=== PATIENT | male | born 2005 | race African-American/Black ===

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

== ENCOUNTER 2023-06-17 15:04 | Emergency (ER) | payer MEDICAID, SELFPAY ==
--- NOTE | ~2023-06-17 | XR_ITS ---
EXAMINATION: XR CHEST CLINICAL INFORMATION: Chest pain COMPARISON: Chest radiograph from 12/14/2020 TECHNIQUE: 2 views of the chest were obtained. FINDINGS: No focal consolidation. No pneumothorax. Trachea is midline. Cardiac mediastinal silhouette is not enlarged. No large pleural effusion. Osseous structures are intact. Soft tissues are unremarkable. XR/XR chest 2V IMPRESSION: No acute cardiopulmonary process.
--- NOTE | 2023-06-17 15:07 | ECG_ITS ---
Test Reason : CHEST PAIN Blood Pressure : / mmHG Vent. Rate : 095 BPM Atrial Rate : 095 BPM P-R Int : 140 ms QRS Dur : 092 ms QT Int : 316 ms P-R-T Axes : 082 090 052 degrees QTc Int : 397 ms Normal sinus rhythm Right atrial enlargement Rightward axis Pulmonary disease pattern Abnormal ECG When compared with ECG of 14-DEC-2020 11:46, No significant change was found Referred By: Zina Rey Electronically Signed By:Juan David Medrano
[2023-06-17 15:27] VITALS: BP 125/90; PULSE 106; RESP 18; TEMP 37.8; O2SAT 100; BMI 22.0
--- NOTE | 2023-06-17 15:29 | ED_ITS ---
HPI - General Adult General Chief complaint: Nausea/Vomiting/Diarrhea Stated complaint: chest pain,vomiting coughing Time Seen by Provider: 06/17/23 15:53 Source: patient Mode of arrival: ambulatory Limitations: no limitations History of Present Illness HPI narrative: Patient is a 18 year old assigned male at with no reported medical history presenting to the emergency department today with nausea, vomiting, and diarrhea. Patient states that over the last week he has felt generally unwell with nausea, vomiting, and diarrhea. Patient denies any dizziness, lightheadedness, abdominal pain, fever, chills, blurry vision, double vision, loss of vision, chest pain, difficulty breathing, shortness of breath, back pain, night sweats, pain with urination, increased urinary frequency, increased urinary urgency, blood in his urine or stool, syncope or a near syncopal episode, recent trauma or falls, bowel incontinence, bladder incontinence, bowel retention, bladder retention, or any other complaints at this time. Onset (ago): week(s) (1) Severity: mild Relieving factors: none Exacerbating factors: none Associated symptoms: nausea/vomiting Treatments prior to arrival: none Related Data Previous Rx's Medication Instructions Recorded ondansetron 4 mg disintegrating 4 mg PO Q8H 3 days #9 tabs 06/17/23 tablet Allergies Allergy/AdvReac Type Severity Reaction Status Date / Time No Known Allergies Allergy Unverified 12/05/19 19:10 [No Known Allergies*] Review of Systems 2 Constitutional: Constitutional: Reports no additional constitutional complaints, Denies chills, Denies fever(s) and Denies night sweats Eyes: Eyes: Reports no additional eye complaints, Denies blurry vision, Denies change in vision, Denies diplopia, Denies eye discharge, Denies loss of vision and Denies eye pain ENT: Denies dizziness Cardiovascular: Cardiovascular: Reports no additional cardiovascular complaints, Denies chest pain, Denies lightheadedness, Denies Loss of Consciousness and Denies dyspnea Respiratory: Respiratory: Reports no additional respiratory complaints and Denies dyspnea Gastrointestinal: Gastrointestinal: Reports no additional gastrointestinal complaints, Denies abdominal pain, Denies melena, Denies hematochezia, Reports change in bowel habits, Reports change in stool character, Reports diarrhea, Reports nausea and Reports vomiting Genitourinary: Genitourinary: Reports no additional male genitourinary complaints, Denies hematuria, Denies oliguria, Denies difficulty urinating, Denies dysuria, Denies urinary frequency, Denies urinary hesitancy, Denies urinary incontinence and Denies urinary urgency Musculoskeletal: Musculoskeletal: Reports no additional musculoskeletal complaints, Denies numbness and Denies tingling Neurologic: Denies dizziness, Denies loss of vision, Denies numbness and Denies tingling Psychiatric: Psychiatric: Reports no additional psychiatric complaints Endocrine: Endocrine: Reports no additional endocrine complaints Hematologic/Lymphatic: Hematologic/Lymphatic: Reports no additional hematologic/lymphatic complaints Allergic/Immunologic: Allergic/Immunologic: Reports no additional allergic/immunologic complaints [facility] Past Medical History Attestation statement: The following information was validated with the patient. Source: old records reviewed and nursing notes reviewed Social History Social History Alcohol intake: never Smoked in Last 30 Days: No Use of substances other than those prescribed or required for medical reasons: No Advance Directives: No Advance Directives Information Provided: No Physical Exam ED Vital Signs: Vital Signs - 24 hr 06/17/23 15:27 06/17/23 16:05 Temperature 100.1 F 98.9 F Pulse Rate 106 H 88 Respiratory Rate 18 16 Blood Pressure 125/90 H 135/87 Pulse Oximetry 100 100 Oxygen Delivery Method Room Air Room Air BMI result Body Mass Index 22.0 Const General: cooperative, no acute distress, alert and awake Nutritional Appearance: well nourished Orientation/consciousness: patient oriented x3 Limitations: no limitations HENMT Head: Yes normal to inspection and Yes atraumatic Ears: hearing grossly normal bilaterally and external ears normal General nose exam: Normal external nose present, no nasal discharge noted and no epistaxis Face and sinus: Yes normal facial exam, No abrasion and No laceration Mouth: Normal oral and palatal mucosa present, no drooling and no muffled voice Eyes General: appearance normal, both eyes and all related structures Periorbital: periorbital findings normal Eyelids: Yes eyelids normal Conjunctivae: conjunctivae normal Pupils: Equal, round and reactive pupils present EOM: EOMs intact bilaterally Neck Neck: Yes normal visual inspection, Yes full ROM and Yes no lymphadenopathy Chest Chest palpation & inspection: normal inspection of the chest Resp Effort & Inspection: normal respiratory effort and able to speak in complete sentences GI Inspection: Yes normal to inspection Neuro General: patient oriented x3 and moves all extremities Cranial nerves: Yes Equal, round and reactive pupils present Cognition (Neuro): normal cognition Motor exam (neuro): 5/5 motor strength present throughout Sensory Exam: Normal double simultaneous stimulation for sensation Coordination: [id number] test normal Extrem General: Yes normal to inspection, Yes full ROM and Yes capillary refill normal Psych Appearance: grossly normal Mental Status: mental status grossly normal Affect: normal affect Attitude: cooperative Thought process: Normal thought process present Thought content: Normal thought content present Insight: Good insight present (Psych) Course Course Course Narrative: This is an RME: Additional HPI, ROS, PE not included below will be deferred to primary provider. 18 yo m presents w/ 6 syncopal episodes in the past day states im out, i loose conciousness for 1 hour and then i come back . Reports a/c fevers, coughing, nausea, cp, sob Medications Administered Generic Name Dose Route Start Last Admin Trade Name Freq PRN Reason Stop Dose Admin Sodium Chloride 1,000 mls @ 999 mls/hr 06/17/23 16:15 06/17/23 16:41 Ns IV 06/17/23 17:15 999 mls/hr .[id number] MICHAEL Administration Discontinued Medications Generic Name Dose Route Start Last Admin Trade Name Freq PRN Reason Stop Dose Admin Ondansetron HCl 4 mg 06/17/23 16:06 06/17/23 16:41 Ondansetron Hcl 4 Mg/2 Ml Vial IVPUSH 06/17/23 16:07 4 mg ONCE ONE Administration Medical Decision Making Medical Decision Making [facility] Narrative: Patient is a 18 year old assigned male at with no reported medical history presenting to the emergency department today with nausea, vomiting, and diarrhea. Patient's physical exam was unremarkable. Patient's blood work was unremarkable. Patient's EKG was unremarkable. Patient's chest x-ray showed no acute process. Patient's COVID-19 and RSV tests were negative. Patient's influenza test was positive. I explained my physical exam findings as well as all test results to the patient. I answered all questions asked by the patient. I stressed the importance of the patient taking his medication as prescribed. I stressed the importance of the patient following up with his primary care provider. I stressed the importance of the patient returning to the emergency department immediately if his symptoms were to worsen or if he were to develop any dizziness, shortness of breath, difficulty breathing, chest pain, blurry vision, loss of vision, nausea, vomiting, abdominal pain, fever, chills, back pain, or any other complaints. Patient verbalized agreement and understanding with this treatment plan and discharge. Differential Diagnosis Differential Diagnoses: The differential diagnosis associated with the presentation includes Nausea Vomiting Diarrhea Viral illness COVID-19 Influenza Admission/Observation Consideration of admission/observation: Escalation of care including admission/observation considered Patient would have been admitted to the hospital had his work up had any findings where hospital admission was appropriate and his clinical presentation warranted hospital admission. Lab Data [facility] Lab Attestation statement: I reviewed the patient's lab results. My interpretation of these results are in the [facility] Rationale portion of this note. 06/17/23 15:44 06/17/23 15:44 Labs: Lab Results 06/17/23 06/17/23 Range/Units 15:25 15:44 WBC 6.4 (4.8-10.8) X10*3/uL RBC 5.42 (4.60-5.80) X10*6/uL Hgb 17.2 (14.0-18.0) g/dl Hct 46.8 (42.0-52.0) % MCV 86.3 (80.0-98.0) fL MCH 31.7 (27.0-33.0) pg MCHC 36.8 H (31.0-36.0) g/dl RDW 11.7 (11.0-16.0) % Plt Count 185 (160-400) X10*3/uL MPV 10.3 (9.4-12.4) fL Immature Gran % (Auto) 0.2 (0.0-0.4) % Neut % (Auto) 67.8 (45-73) % Lymph % (Auto) 19.8 L (20-40) % Braxton % (Auto) 12.0 H (2-11) % Eos % (Auto) 0.0 (0-4) % Baso % (Auto) 0.2 (0-2) % Lymph # (Auto) 1.3 (1.2-4.9) X10*3/uL Braxton # (Auto) 0.8 (0.1-1.2) X10*3/uL Eos # (Auto) 0.0 (0.0-0.4) X10*3/uL Baso # (Auto) 0.0 (0.0-0.2) X10*3/uL Abs Immat Gran (auto) 0.01 (0.00-0.03) X10*3/uL Absolute Neuts (auto) 4.4 (2.0-8.3) x10*3/uL Absolute Nucleated RBC 0.000 (0.0-0.012) X10*3/uL Nucleated RBC % (auto) 0.0 (0.0-0.2) /100WBC PT 15.1 H (11.1-13.3) SEC INR 1.2 H (0.9-1.1) Sodium 130 L (135-145) mmol/L Potassium 3.8 (3.3-5.1) mmol/L Chloride 95 L (96-108) mmol/L Carbon Dioxide 21 L (22-29) mmol/L Anion Gap 18 (12-20) BUN 14 (9-16) mg/dL Creatinine 1.08 (0.5-1.4) mg/dL Estim Creat Clear Calc 120.2 Estimated GFR > 60 Random Glucose 91 (60-115) mg/dL Calcium 10.0 (8.4-10.2) mg/dL Magnesium 2.0 (1.6-2.6) mg/dL Total Bilirubin 1.1 H (0.0-1.0) mg/dL AST 20 (5-37) U/L ALT 10 (0-40) U/L Alkaline Phosphatase 59 (39-117) U/L Troponin I High Sens 5.4 (<3.5-35.0) ng/L Total Protein 7.6 (6.5-8.0) g/dL Albumin 4.5 (3.5-5.0) g/dL Influenza Type A (PCR) POSITIVE A (Negative) Influenza Type B (PCR) NEGATIVE (Negative) RSV RNA Qual (PCR) NEGATIVE (Negative) SARS-CoV-2 RNA (RT-PCR) NEGATIVE (Negative) Independent Interpretation I performed an independent interpretation of an: EKG and Plain X-Ray Interpretation: My interpretation is in agreement with the radiologist's impression of this imaging study. - EXAMINATION: XR CHEST CLINICAL INFORMATION: Chest pain COMPARISON: Chest radiograph from 12/14/2020 TECHNIQUE: 2 views of the chest were obtained. FINDINGS: No focal consolidation. No pneumothorax. Trachea is midline. Cardiac mediastinal silhouette is not enlarged. No large pleural effusion. Osseous structures are intact. Soft tissues are unremarkable. XR/XR chest 2V IMPRESSION: No acute cardiopulmonary process. Dictated By: Jackson Millan MD Signed By: Electronically signed by Jackson Millan MD 06/17/23 1648 - Vent. Rate: 095 BPM Atrial Rate: 095 BPM P-R Int: 140 ms QRS Dur: 092 ms QT Int: 316 ms P-R-T Axes: 082 090 052 degrees QTc Int: 397 ms Normal sinus rhythm Right atrial enlargement Rightward axis Pulmonary disease pattern Abnormal ECG When compared with ECG of 14-DEC-2020 11:46, No significant change was found DD/ [id number] Radiology Impression Discussion of test interpretation with radiology: I have reviewed the radiologist's reading. Discharge Plan Discharge Clinical Impression: Influenza Patient Disposition: Home, Self-Care Instructions: Influenza (DC) Additional Instructions: Follow up with your primary care provider. Return to the emergency department immediately if your symptoms worsen or if you develop any dizziness, shortness of breath, difficulty breathing, chest pain, blurry vision, loss of vision, nausea, vomiting, abdominal pain, fever, chills, back pain, or any other complaints. Prescriptions: New ondansetron 4 mg tablet,disintegrating 4 mg PO Q8H 3 Days Qty: 9 0RF Referrals: [facility] [Provider Group] (Call to establish and follow up with a primary care provider. If you already have a primary care provider, please follow up with them.) [facility] [Provider Group] (Call to establish and follow up with a primary care provider. If you already have a primary care provider, please follow up with them.) [facility]an [Provider Group] (Call to establish and follow up with a primary care provider. If you already have a primary care provider, please follow up with them.) Stand Alone Forms: Work/School Release Print Language: Ethiopian
[2023-06-17 15:48] LABS: MANUAL DIFF FLAG NO
[2023-06-17 16:05] VITALS: BP 135/87; PULSE 88; RESP 16; TEMP 37.2; O2SAT 100
[2023-06-17 16:07] LABS: Alanine Aminotransferase 10 U/L (0-40); Albumin Level 4.5 g/dL (3.5-5.0); Alkaline Phosphatase 59 U/L (39-117); Anion Gap 18 (12-20); Aspartate Amino Transferase 20 U/L (5-37); Bilirubin Total 1.1 mg/dL (0.0-1.0); Blood Urea Nitrogen 14 mg/dL (9-16); Carbon Dioxide 21 mmol/L (22-29); Chloride 95 mmol/L (96-108); Creatinine Clr Calc Pharmacy 120.2; Estimated Glomerular Filt Rate > 60; Glucose Random 91 mg/dL (60-115); Potassium 3.8 mmol/L (3.3-5.1); Sodium 130 mmol/L (135-145); Total Protein 7.6 g/dL (6.5-8.0)
[2023-06-17 16:13] LABS: Basophils Percent Auto 0.2 % (0-2); Hematocrit 46.8 % (42.0-52.0); Hemoglobin 17.2 g/dl (14.0-18.0); Imm Gran Abs Auto 0.01 X10*3/uL (0.00-0.03); Imm Gran Pct Auto 0.2 % (0.0-0.4); Lymphocytes Absolute Auto 1.3 X10*3/uL (1.2-4.9); Lymphocytes Percent Auto 19.8 % (20-40); Mean Corpuscular HGB Conc 36.8 g/dl (31.0-36.0); Mean Corpuscular Hemoglobin 31.7 pg (27.0-33.0); Mean Corpuscular Volume 86.3 fL (80.0-98.0); Mean Platelet Volume 10.3 fL (9.4-12.4); Monocytes Absolute Auto 0.8 X10*3/uL (0.1-1.2); Neutrophils Absolute Auto 4.4 x10*3/uL (2.0-8.3); Neutrophils Percent Auto 67.8 % (45-73); Platelet Count 185 X10*3/uL (160-400); Red Blood Count 5.42 X10*6/uL (4.60-5.80); Red Cell Distribution Width 11.7 % (11.0-16.0); White Blood Count 6.4 X10*3/uL (4.8-10.8)
[2023-06-17 16:14] LABS: Troponin-I High Sensitivity 5.4 ng/L (<3.5-35.0)
[2023-06-17 16:18] LABS: Influenza A PCR POSITIVE (Negative); Influenza B PCR NEGATIVE (Negative); Resp Syncy Virus RNA Qual PCR NEGATIVE (Negative); SARS COV2 PCR INHOUSE NEGATIVE (Negative)
[2023-06-17 16:22] LABS: INTERNATIONAL NORM RATIO 1.2 (0.9-1.1); Prothrombin Time 15.1 SEC (11.1-13.3)
--- NOTE | 2023-06-17 16:30 | PC.NURSE ---
easton obtained/sent to lab. pt to xray at this time.
[2023-06-17] MEDS: 0.9 % Sodium Chloride 1,000 ML 999 ML IV (16:41)
[2023-06-17] MEDS: ondansetron HCL 4 MG/2 ML VIAL IVPUSH (16:41)
--- NOTE | 2023-06-17 16:43 | PC.NURSE ---
20gIV placed in the right AC - medication/IVF administered per provider order. plan of care ongoing.
[2023-06-17 16:57] LABS: Troponin-I High Sensitivity 5.2 ng/L (<3.5-35.0)
[2023-06-17 17:42] VITALS: BP 134/83; PULSE 87; RESP 16; TEMP 37.7; O2SAT 100
== END 2023-06-17 17:46 | disposition home or self-care (01) ==
PROVIDERS: Physician Assistant; Physician Assistant Medical; Emergency Provider Emergency Medicine Emergency Medical Services; PCP Pediatrics
DX: J11.1 Influenza due to unidentified influenza virus with other respiratory manifestations (principal); Z11.52 Encounter for screening for COVID-19; Z20.828 Contact with and (suspected) exposure to other viral communicable diseases
CPT/HCPCS: 0241U; 36415; 71046; 80053; 83735; 84484; 85025; 85610; 93005; 96374; 99284; 99285; J2405

== ENCOUNTER → 2023-06-17 15:07 | Outpatient (BNV) | payer MEDICAID, SELFPAY | PROVIDERS: Emergency Provider Emergency Medicine Emergency Medical Services; PCP Pediatrics; Visit Provider Internal Medicine Cardiovascular Disease | DX: R07.9 Chest pain, unspecified (principal) | CPT/HCPCS: 93010 ==

== ENCOUNTER 2023-06-18 16:22 | Emergency (ER) | payer MEDICAID, SELFPAY ==
--- NOTE | ~2023-06-18 | CT_ITS ---
EXAMINATION: CT HEAD WITHOUT CONTRAST CLINICAL INFORMATION: Syncope. COMPARISON: None. TECHNIQUE: Contiguous axial imaging was performed from the skullbase to vertex without intravenous administration of contrast. This CT examination was performed using dose optimization techniques as appropriate, variously including the following: *Automated exposure control *Adjustment of mA and/or kV according to patient size (this includes techniques or standardized protocols for targeted exams where dose is matched to indication/reason for exam; i.e. extremities or head) *Use of iterative reconstruction technique DLP: 678 mGy-cm. FINDINGS: There is no evidence of acute intracranial hemorrhage or territorial infarction. No abnormal mass effect or midline shift is seen. No extra-axial fluid collections are identified. The ventricles are normal in size. There is no abnormal attenuation within the brain parenchyma. The osseous structures and soft tissues are normal. The mastoid air cells are well aerated. There is significant bilateral maxillary sinus mucosal thickening. Moderate ethmoid sinus mucosal thickening is also visible. There is a moderate fluid level in the dependent right frontal sinus. CT/CT head/brain wo IV con IMPRESSION: No acute intracranial pathology. Significant bilateral maxillary sinus mucosal thickening with moderate mucosal thickening in the ethmoid air cells and a moderate fluid level in the right frontal sinus. Correlate for any symptoms of acute sinusitis.
--- NOTE | 2023-06-18 16:24 | ECG_ITS ---
Test Reason : CHEST PAIN Blood Pressure : / mmHG Vent. Rate : 095 BPM Atrial Rate : 095 BPM P-R Int : 142 ms QRS Dur : 096 ms QT Int : 330 ms P-R-T Axes : 083 091 049 degrees QTc Int : 414 ms Normal sinus rhythm Right atrial enlargement Rightward axis Pulmonary disease pattern Abnormal ECG When compared with ECG of 17-JUN-2023 15:19, No significant change was found Referred By: Rula Duke Electronically Signed By:KAR OGDEN MD
[2023-06-18 16:32] VITALS: BP 142/83; PULSE 102; RESP 18; TEMP 36.7; O2SAT 99; BMI 22.0
--- NOTE | 2023-06-18 16:32 | ED_ITS ---
HPI - General Adult General Chief complaint: General Medical Stated complaint: bodyaches, chest pain, vomiting, multi Time Seen by Provider: 06/18/23 17:25 Related Data Previous Rx's Medication Instructions Recorded ondansetron 4 mg disintegrating 4 mg PO Q8H 3 days #9 tabs 06/17/23 tablet Allergies Allergy/AdvReac Type Severity Reaction Status Date / Time No Known Allergies Allergy Verified 06/18/23 16:32 [No Known Allergies*] [facility] Social History Social History Alcohol intake: never Smoked in Last 30 Days: No Use of substances other than those prescribed or required for medical reasons: No Advance Directives: No Advance Directives Information Provided: No Physical Exam ED Vital Signs: Vital Signs - 24 hr 06/18/23 16:32 Temperature 98.0 F Pulse Rate 102 H Respiratory Rate 18 Blood Pressure 142/83 H Pulse Oximetry 99 Oxygen Delivery Method Room Air BMI result Body Mass Index 22.0 Course Course Course Narrative: Patient is a 18-year-old male who presents emergency department for evaluation of continued vomiting, body aches, chest pain, shortness of breath, dizziness, multiple syncopal episodes. Was seen in the emergency department yesterday diagnosed with influenza. Reports unable to tolerate any oral intake. Medical Decision Making Lab Data 06/18/23 18:25 06/18/23 18:25 Labs: Lab Results 06/18/23 Range/Units 18:25 WBC 6.3 (4.8-10.8) X10*3/uL RBC 5.19 (4.60-5.80) X10*6/uL Hgb 16.8 (14.0-18.0) g/dl Hct 45.2 (42.0-52.0) % MCV 87.1 (80.0-98.0) fL MCH 32.4 (27.0-33.0) pg MCHC 37.2 H (31.0-36.0) g/dl RDW 11.6 (11.0-16.0) % Plt Count 157 L (160-400) X10*3/uL MPV 10.2 (9.4-12.4) fL Immature Gran % (Auto) 0.5 H (0.0-0.4) % Neut % (Auto) 59.9 (45-73) % Lymph % (Auto) 26.1 (20-40) % Lincoln % (Auto) 13.3 H (2-11) % Eos % (Auto) 0.0 (0-4) % Baso % (Auto) 0.2 (0-2) % Lymph # (Auto) 1.7 (1.2-4.9) X10*3/uL [place] # (Auto) 0.8 (0.1-1.2) X10*3/uL Eos # (Auto) 0.0 (0.0-0.4) X10*3/uL Baso # (Auto) 0.0 (0.0-0.2) X10*3/uL Abs Immat Gran (auto) 0.03 (0.00-0.03) X10*3/uL Absolute Neuts (auto) 3.8 (2.0-8.3) x10*3/uL Absolute Nucleated RBC 0.000 (0.0-0.012) X10*3/uL Nucleated RBC % (auto) 0.0 (0.0-0.2) /100WBC Sodium 135 (135-145) mmol/L Potassium 3.3 (3.3-5.1) mmol/L Chloride 102 (96-108) mmol/L Carbon Dioxide 17 L (22-29) mmol/L Anion Gap 19 (12-20) BUN 10 (9-16) mg/dL Creatinine 0.85 (0.5-1.4) mg/dL Estim Creat Clear Calc 152.7 Estimated GFR > 60 Random Glucose 73 (60-115) mg/dL Calcium 10.0 (8.4-10.2) mg/dL Magnesium 2.1 (1.6-2.6) mg/dL Total Bilirubin 0.8 (0.0-1.0) mg/dL AST 25 (5-37) U/L ALT 12 (0-40) U/L Alkaline Phosphatase 54 (39-117) U/L Troponin I High Sens < 2.7 (<3.5-35.0) ng/L Total Protein 7.6 (6.5-8.0) g/dL Albumin 4.2 (3.5-5.0) g/dL Discharge Plan Discharge Prescriptions: No Action ondansetron 4 mg tablet,disintegrating 4 mg PO Q8H 3 Days Qty: 9 0RF
[2023-06-18 18:28] LABS: MANUAL DIFF FLAG NO
[2023-06-18 18:31] LABS: Basophils Percent Auto 0.2 % (0-2); Hematocrit 45.2 % (42.0-52.0); Hemoglobin 16.8 g/dl (14.0-18.0); Imm Gran Abs Auto 0.03 X10*3/uL (0.00-0.03); Imm Gran Pct Auto 0.5 % (0.0-0.4); Lymphocytes Absolute Auto 1.7 X10*3/uL (1.2-4.9); Lymphocytes Percent Auto 26.1 % (20-40); Mean Corpuscular HGB Conc 37.2 g/dl (31.0-36.0); Mean Corpuscular Hemoglobin 32.4 pg (27.0-33.0); Mean Corpuscular Volume 87.1 fL (80.0-98.0); Mean Platelet Volume 10.2 fL (9.4-12.4); Monocytes Absolute Auto 0.8 X10*3/uL (0.1-1.2); Monocytes Percent Auto 13.3 % (2-11); Neutrophils Absolute Auto 3.8 x10*3/uL (2.0-8.3); Neutrophils Percent Auto 59.9 % (45-73); Platelet Count 157 X10*3/uL (160-400); Red Blood Count 5.19 X10*6/uL (4.60-5.80); Red Cell Distribution Width 11.6 % (11.0-16.0); White Blood Count 6.3 X10*3/uL (4.8-10.8)
[2023-06-18 18:47] LABS: Alanine Aminotransferase 12 U/L (0-40); Albumin Level 4.2 g/dL (3.5-5.0); Alkaline Phosphatase 54 U/L (39-117); Anion Gap 19 (12-20); Aspartate Amino Transferase 25 U/L (5-37); Bilirubin Total 0.8 mg/dL (0.0-1.0); Blood Urea Nitrogen 10 mg/dL (9-16); Carbon Dioxide 17 mmol/L (22-29); Chloride 102 mmol/L (96-108); Creatinine Clr Calc Pharmacy 152.7; Estimated Glomerular Filt Rate > 60; Glucose Random 73 mg/dL (60-115); Magnesium 2.1 mg/dL (1.6-2.6); Potassium 3.3 mmol/L (3.3-5.1); Sodium 135 mmol/L (135-145); Total Protein 7.6 g/dL (6.5-8.0)
--- NOTE | 2023-06-18 18:55 | ED.GENADULT ---
HPI - General Adult General Chief complaint: General Medical Stated complaint: bodyaches, chest pain, vomiting, multi Time Seen by Provider: 06/18/23 17:25 Source: patient and family Mode of arrival: ambulatory Limitations: no limitations History of Present Illness HPI narrative: 18-year-old male presents with fatigue, malaise, myalgias, chest discomfort with breathing, nausea, vomiting, diarrhea, body aches, headache all of which started a little bit over a week ago, patient reports yesterday he was told he had influenza, symptoms have not been going away. Reports nausea and vomiting so bad he hasnt been eating. Also reports he thinks he is passing out multiple times a day. Denies sick contacts. Denies changes in urination, shortness of breath, wheezing, vision changes, dizziness, weakness, abdominal pain, changes in bowel habits. NIH stroke scale 0. Related Data Previous Rx's Medication Instructions Recorded ondansetron 4 mg disintegrating 4 mg PO Q8H 3 days #9 tabs 06/17/23 tablet loperamide 2 mg capsule 2 mg PO Q6H PRN loose stool #20 06/18/23 caps Allergies Allergy/AdvReac Type Severity Reaction Status Date / Time No Known Allergies Allergy Verified 06/18/23 16:32 [No Known Allergies*] Review of Systems Review of Systems: Yes all other systems are reviewed and are negative PMFSH Past Medical History Attestation statement: The following information was validated with the patient. Source: old records reviewed and nursing notes reviewed Social History Social History Alcohol intake: never Smoked in Last 30 Days: No Use of substances other than those prescribed or required for medical reasons: No Advance Directives: No Advance Directives Information Provided: No Physical Exam ED Vital Signs: Vital Signs - 24 hr 06/18/23 16:32 06/18/23 20:26 Temperature 98.0 F 98.7 F Pulse Rate 102 H 105 H Respiratory Rate 18 16 Blood Pressure 142/83 H 136/91 H Pulse Oximetry 99 97 Oxygen Delivery Method Room Air Room Air BMI result Body Mass Index 22.0 VSS Appearance: Alert.? Oriented X3.? No acute distress.? Head: Normocephalic, atraumatic, no step-offs or deformities Eyes: Pupils equal, round and reactive to light.? Neck: Normal inspection.? Neck supple.? CVS: Normal heart rate and rhythm.? Pulses normal.? Respiratory: No respiratory distress.? Breath sounds normal.? Abdomen: Soft and nontender.? Skin: Skin warm and dry.? Normal skin color.? Normal skin turgor.? Extremities: No lower extremity edema.? No calf ttp. 5/5 strength to bilateral upper and lower extremities Neuro: Oriented X 3.? No motor deficit.? No sensory deficit. CN 2-12 intact Course Course Course Narrative: Patient is a 18-year-old male who presents emergency department for evaluation of continued vomiting, body aches, chest pain, shortness of breath, dizziness, multiple syncopal episodes. Was seen in the emergency department yesterday diagnosed with influenza. Reports unable to tolerate any oral intake. Reevaluation(s) Reevaluation #1: CBC with normal white blood cell count, normal hemoglobin and hematocrit. Platelets slightly low 157 likely secondary to viral illness. Patient is known to be influenza positive as of yesterday. Chemistry no acute findings requiring intervention. Troponin negative, EKG nonischemic. CT head no acute intracranial pathology. Significant bilateral maxillary sinus mucosal thickening with moderate mucosal thickening in the ethmoid air cells and a moderate fluid level in the right frontal sinus. No symptoms of sinusitis however no facial pressure congestion. Chest x-ray from yesterday was unremarkable therefore no need for repeat x-ray. Normal lungs on auscultation. 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 No syncopal episodes here. Patient is requesting to leave and feels fine. Reports he feels much better. Time: 20:35 Reevaluation #2: Will give 2 L W/ antiemetics and dc home. discussed this case w/ my attending Dr. Cordero who agree w/ diagnosis and tx plan. Has no further recommendations other than IV hydration. He suspects syncope likely vasovagal. Educated patient on diagnosis and treatment plan, answered all question, patient verbalizes understanding. At this time patient will be discharged home, advised to return with new or worsening symptoms. Educated on worrisome signs and symptoms and when to return. At this time I feel comfortable discharge home. Time: 20:45 Medical Decision Making Medical Decision Making [facility] Narrative: 1854 18-year-old male presents with nausea, vomiting, diarrhea, chest discomfort w/ breathing, a little over a week tested + for influenza yesterday and today has been having multiple syncopal episodes. PE - benign Concerns for viral illness such as influenza versus COVID. Unlikely metabolic derangements. Syncope likely secondary to poor p.o. intake/dehydration. Unlikely are hypertrophic cardiomyopathy, PE, ACS, dissection. Plan at this time labs, urine, head ct Differential Diagnosis Differential Diagnoses: The differential diagnosis associated with the presentation includes Concerns for viral illness such as influenza versus COVID. Unlikely metabolic derangements. Syncope likely secondary to poor p.o. intake/dehydration. Unlikely are hypertrophic cardiomyopathy, PE, ACS, dissection. Admission/Observation Consideration of admission/observation: Escalation of care including admission/observation considered unlikely Lab Data MDM Lab Attestation statement: I reviewed the patient's lab results. 06/18/23 18:25 06/18/23 18:25 Labs: Lab Results 06/18/23 Range/Units 18:25 WBC 6.3 (4.8-10.8) X10*3/uL RBC 5.19 (4.60-5.80) X10*6/uL Hgb 16.8 (14.0-18.0) g/dl Hct 45.2 (42.0-52.0) % MCV 87.1 (80.0-98.0) fL MCH 32.4 (27.0-33.0) pg MCHC 37.2 H (31.0-36.0) g/dl RDW 11.6 (11.0-16.0) % Plt Count 157 L (160-400) X10*3/uL MPV 10.2 (9.4-12.4) fL Immature Gran % (Auto) 0.5 H (0.0-0.4) % Neut % (Auto) 59.9 (45-73) % Lymph % (Auto) 26.1 (20-40) % [place] % (Auto) 13.3 H (2-11) % Eos % (Auto) 0.0 (0-4) % Baso % (Auto) 0.2 (0-2) % Lymph # (Auto) 1.7 (1.2-4.9) X10*3/uL [place] # (Auto) 0.8 (0.1-1.2) X10*3/uL Eos # (Auto) 0.0 (0.0-0.4) X10*3/uL Baso # (Auto) 0.0 (0.0-0.2) X10*3/uL Abs Immat Gran (auto) 0.03 (0.00-0.03) X10*3/uL Absolute Neuts (auto) 3.8 (2.0-8.3) x10*3/uL Absolute Nucleated RBC 0.000 (0.0-0.012) X10*3/uL Nucleated RBC % (auto) 0.0 (0.0-0.2) /100WBC Sodium 135 (135-145) mmol/L Potassium 3.3 (3.3-5.1) mmol/L Chloride 102 (96-108) mmol/L Carbon Dioxide 17 L (22-29) mmol/L Anion Gap 19 (12-20) BUN 10 (9-16) mg/dL Creatinine 0.85 (0.5-1.4) mg/dL Estim Creat Clear Calc 152.7 Estimated GFR > 60 Random Glucose 73 (60-115) mg/dL Calcium 10.0 (8.4-10.2) mg/dL Magnesium 2.1 (1.6-2.6) mg/dL Total Bilirubin 0.8 (0.0-1.0) mg/dL AST 25 (5-37) U/L ALT 12 (0-40) U/L Alkaline Phosphatase 54 (39-117) U/L Troponin I High Sens < 2.7 (<3.5-35.0) ng/L Total Protein 7.6 (6.5-8.0) g/dL Albumin 4.2 (3.5-5.0) g/dL Independent Interpretation I performed an independent interpretation of an: EKG (Vent. Rate : 095 BPM Atrial Rate : 095 BPM P-R Int : 142 ms QRS Dur : 096 ms QT Int : 330 ms P-R-T Axes : 083 091 049 degrees QTc Int : 414 ms Normal sinus rhythm Right atrial enlargement Rightward axis Pulmonary disease pattern Abnormal ECG When compared with ECG of 3), Plain X-Ray ( XR/XR chest 2V IMPRESSION: No acute cardiopulmonary process. ) and CT Scan ( CT/CT head/brain wo IV con IMPRESSION: No acute intracranial pathology. Significant bilateral maxillary sinus mucosal thickening with moderate mucosal thickening in the ethmoid air cells and a moderate fluid level in the right frontal sinus. Correlate for any symptoms of acute sinusitis.) Radiology Impression Discussion of test interpretation with radiology: I have reviewed the radiologist's reading. External Record Review External record reviewed: Inpatient record, Office record, Outpatient record, Prior outpatient labs, Prior outpatient radiology, Primary care record and Outside ED record Chronic Conditions NK hx Critical Care Time Critical Care Time Critical Care Time: No Discharge Plan Discharge Clinical Impression: Influenza, Syncope Patient Disposition: Home, Self-Care Instructions: Influenza (ED), Syncope (ED) Additional Instructions: Take your medications as prescribed. If you were prescribed antibiotics today, it is important that you take your medication to their entirety, do not skip any doses, do not finish them early. Follow-up with your primary care provider this week. Return to the emergency department with new or worsening symptoms. Such as fevers, chills, chest pain, shortness of breath, nausea, vomiting, dizziness, headache, vision changes, lethargy In case of emergency call 911 Drink plenty of fluids Take Zofran as prescribed yesterday for nausea and vomiting Loperamide for diarrhea Prescriptions: New loperamide 2 mg capsule 2 mg PO Q6H PRN (Reason: loose stool) Qty: 20 0RF No Action ondansetron 4 mg tablet,disintegrating 4 mg PO Q8H 3 Days Qty: 9 0RF Referrals: Physician,None [Primary Care Provider] - 2 days Stand Alone Forms: Work/School Release
[2023-06-18 18:56] LABS: Troponin-I High Sensitivity < 2.7 ng/L (<3.5-35.0)
--- NOTE | 2023-06-18 18:56 | PC.NURSE ---
Patient Flu A + yesterday, continues to complain of epigastric pain, resting quietly on stretcher at this time.
[2023-06-18 20:26] VITALS: BP 136/91; PULSE 105; RESP 16; TEMP 37.1; O2SAT 97
[2023-06-18] MEDS: 0.9 % Sodium Chloride 1,000 ML 999 ML IV ×2 (20:58→20:59)
[2023-06-18] MEDS: Metoclopramide HCl 10 MG/2 ML VIAL IVPUSH (21:27)
[2023-06-18] MEDS: diphenhydrAMINE HCL 50 MG/ML VIAL 25 MG IVPUSH (21:27)
[2023-06-18 21:46] VITALS: BP 142/76; PULSE 90; RESP 14; TEMP 37; O2SAT 98
== END 2023-06-18 21:47 | disposition home or self-care (01) ==
PROVIDERS: Physician Assistant; Emergency Provider Emergency Medicine Emergency Medical Services
DX: J11.1 Influenza due to unidentified influenza virus with other respiratory manifestations (principal); R55 Syncope and collapse
CPT/HCPCS: 36415; 70450; 80053; 83735; 84484; 85025; 93005; 96374; 96375; 99284; 99285; J1200; J2765

== ENCOUNTER → 2023-06-18 16:24 | Outpatient (BNV) | payer MEDICAID, SELFPAY | PROVIDERS: Emergency Provider Emergency Medicine Emergency Medical Services; Visit Provider Internal Medicine Cardiovascular Disease | DX: R94.31 Abnormal electrocardiogram [ECG] [EKG] (principal) | CPT/HCPCS: 93010 ==

== ENCOUNTER 2023-11-28 16:14 | Outpatient (REF) | payer MEDICAID, SELFPAY ==
[2023-11-28 17:53] LABS: MANUAL DIFF FLAG NO
[2023-11-28 17:58] LABS: Basophils Absolute Auto 0.1 X10*3/uL (0.0-0.2); Eosinophils Percent Auto 0.6 % (0-4); Hematocrit 44.8 % (42.0-52.0); Imm Gran Abs Auto 0.01 X10*3/uL (0.00-0.03); Imm Gran Pct Auto 0.2 % (0.0-0.4); Lymphocytes Absolute Auto 2.5 X10*3/uL (1.2-4.9); Lymphocytes Percent Auto 52.3 % (20-40); Mean Corpuscular HGB Conc 33.5 g/dl (31.0-36.0); Mean Corpuscular Volume 92.6 fL (80.0-98.0); Mean Platelet Volume 10.7 fL (9.4-12.4); Monocytes Absolute Auto 0.3 X10*3/uL (0.1-1.2); Monocytes Percent Auto 6.5 % (2-11); Neutrophils Absolute Auto 1.9 x10*3/uL (2.0-8.3); Neutrophils Percent Auto 39.4 % (45-73); Platelet Count 256 X10*3/uL (160-400); Red Blood Count 4.84 X10*6/uL (4.60-5.80); Red Cell Distribution Width 12.2 % (11.0-16.0); White Blood Count 4.8 X10*3/uL (4.8-10.8)
[2023-11-28 18:29] LABS: Anion Gap 12 (12-20); Blood Urea Nitrogen 11 mg/dL (9-16); Calcium 10.6 mg/dL (8.4-10.2); Carbon Dioxide 26 mmol/L (22-29); Chloride 108 mmol/L (96-108); Estimated Glomerular Filt Rate > 60; Glucose Random 104 mg/dL (60-115); Potassium 4.6 mmol/L (3.3-5.1); Sodium 141 mmol/L (135-145)
[2023-11-29 04:36] LABS: HBsAGNum1 0.25 S/CO (0.00-0.99); Hepatitis B Surface Antigen Negative (Negative); ~HepC Num1 0.11 S/CO (0.00-0.79); ~Hepatitis C Antibody Nonreactive (Nonreactive)
[2023-11-29 04:43] LABS: Hepatitis A Antibody IgG REACTIVE (Nonreactive); ~Hepatitis A Antibody IgG 11.56 S/CO (0.00-0.99)
[2023-11-29 04:58] LABS: HBS Num1 0.49 mIU/mL (0-7.99); HIV AB/AG Nonreactive (Nonreactive); HIV Num 1 0.05 S/CO (0.00-0.99); ~Hepatitis B Surface Antibody NONREACTIVE (Nonreactive)
[2023-11-29 07:13] LABS: CT PCR NOT DETECTED (Not Detect.); NG PCR NOT DETECTED (Not Detect.)
[2023-11-29 15:23] LABS: RPR Rapid Plasma Reagin NON-REACTIVE (NON-REACTIVE)
== END 2023-11-28 16:15 | disposition home or self-care (01) ==
LOC: HO.HHCL 16:14
PROVIDERS: Visit Provider Pediatrics
DX: Z11.3 Encounter for screening for infections with a predominantly sexual mode of transmission (principal); L29.3 Anogenital pruritus, unspecified
CPT/HCPCS: 36415; 80048; 85025; 86592; 86706; 86708; 86803; 87340; 87389; 87491; 87591

== ENCOUNTER 2024-12-26 18:06 | Emergency (ER) | payer MEDICAID, SELFPAY ==
[2024-12-26 18:31] VITALS: BP 136/79; PULSE 81; RESP 20; TEMP 36.7; O2SAT 99; BMI 20.5
--- NOTE | 2024-12-26 18:33 | ED.GENADULT ---
HPI - General Adult General Chief complaint: General Medical Stated complaint: general testing Related Data Previous Rx's ?Medication ?Instructions ?Recorded ondansetron 4 mg disintegrating 4 mg PO Q8H 3 days #9 tabs 06/17/23 tablet loperamide 2 mg capsule 2 mg PO Q6H PRN loose stool #20 06/18/23 caps Allergies Allergy/AdvReac Type Severity Reaction Status Date / Time No Known Allergies (No Known Allergy Verified 12/26/24 18:32 Allergies*) [facility] Social History Social History Alcohol intake: never Advance Directives: No Advance Directives Information Provided: Yes Do you have a plan to hurt others: No Plan Physical Exam ED Vital Signs: Vital Signs - 24 hr 12/26/24 18:31 Temperature 98.0 F Pulse Rate 81 Respiratory Rate 20 Blood Pressure 136/79 Pulse Oximetry 99 Oxygen Delivery Method Room Air BMI result Body Mass Index 20.5 Course Course Course Narrative: This is a rapid medical exam performed by Melecio Leonard NP: Additional HPI, ROS, PE not included below will be deferred to primary provider. Patient is a 19y/o M who has sex with males presenting to the ED with complaint of redness and itching to his genital area. Denies any sores. States partner reported recent negative STI testing but he still wants to be assessed. Area not visualized in triage due to privacy concerns. Plan: CT NG urine and UA to start Patient left the emergency department before myself or any of the other clinicians could review or explain physical exam findings, test results, need or lack there of for additional testing, treatment options, or a treatment plan. CT NG negative. Medical Decision Making Lab Data Labs: Lab Results 12/26/24 Range/Units 18:42 Urine Color Yellow Urine Appearance Clear Urine pH 6.0 (5.0-9.0) Ur Specific [place] 1.025 (1.005-1.025) Urine Protein Negative (Neg-Trace) mg/dL Urine Glucose (UA) Negative (Negative) mg/dL Urine Ketones Trace (Negative) mg/dL Urine Blood Negative (Negative) Urine Nitrite Negative (Negative) Ur Leukocyte Esterase Negative (Negative) Ur N gonorrhoeae DNA (PCR) NOT DETECTED (Not Detect.) Ur Chlamydia DNA (PCR) NOT DETECTED (Not Detect.) Discharge Plan Discharge Clinical Impression: Concern about STI in male without diagnosis Patient Disposition: Left W/O Completing Treatment Prescriptions: No Action ondansetron 4 mg tablet,disintegrating 4 mg PO Q8H 3 Days Qty: 9 0RF loperamide 2 mg capsule 2 mg PO Q6H PRN (Reason: loose stool) Qty: 20 0RF Discharge Date/Time: 12/26/24 22:37
[2024-12-26 19:05] LABS: Appearance Urine Clear; Glucose Urine UA Negative (Negative); PH 6.0 (5.0-9.0); Specific Gravity - Urine 1.025 (1.005-1.025)
--- OUTSIDE RECORDS SUMMARY | 2024-12-26 22:21 | XMS_ITS | Clinical Summary ---
Author Organization [employer] Address [address] [place] [address] Care Team Providers Care Junior Project Coordinator Name Role Phone Shelby Singh AUDIO VISUAL ARTS DIRECTOR Primary Care Provider [phone] Allergies No known active allergies Medications hydrocortisone 1 % creamIndications :Perineal itching, male Apply to area of itch BID prn 30 g 11/28/2023 Active Active Problems Problem Noted Date Diagnosed Date Migraine 11/28/2023 Attention deficit hyperactivity disorder, combin ed type 05/18/2015 Developmental academic disorder 05/18/2015 Immunizations Immunization Administration Dates Next Due DTaP 02/16/2007, 6,2003,06/04 DTaP, 5 pertussis antigens 2003 HPV 9-Valent 12/24/2015,08/18/2015,06/16/2015 Hep A, ped/adol, 2 dose 06/23/2016,06/16/2015 Hep B, Adolescent or Pediatric 2003,2003,2003 IPV 02/16/2007, 4,2003,04/10 Influenza injectable quadriv alent preservative free 06/02/2022,11/28/2019,11/26/2019,06/15 MMR 02/16/2007,02/02/2004 Meningococcal MCV4P ACYW-135 12/12/2019,06/22/19 14 Pfizer Covid-19 Vaccine 12+ Bivalent 06/02/2022 Tdap 06/21/2013 Varicella 01/14/2014,02/16/2007 Social History Tobacco Use Types Packs/Day Years Used Date Smoking Tobacco: Never Passive Smoke Exposure: Never Smokeless Tobacco: Never Tobacco Cessation:Counseling Given: Not Answered Sex and Gender Information Value Date Recorded Sex Assigned at Male 01/17/2022 10:29 AM EDT Legal Sex Male 10:29 AM EDT Gender Identity Male 01/17/2022 10:29 AM EDT Sexual Orientation Straight 01/17/2022 10 :29 AM EDT Last Filed Vital Signs Vital Sign Reading Time Taken Comments Blood Pressure 123/82 11/28/2023 3:39 PM EDT Pulse 65 11/28/2023 3:39 PM EDT Temperature 36.7 C (98 F) 11/28/2023 3:39 PM EDT Respiratory Rate 18 11/28/2023 3:39 PM EDT Oxygen Saturation 100% 11/28/2023 3:39 PM EDT Inhaled Oxygen Concentration - - Weight 83.5 kg (184 lb) 11/28/2023 3:39 PM EDT Height 182.9 cm (6') 11/28/2023 3:39 PM EDT Body Mass Index 24.95 11/28/2023 3:39 PM EDT Plan of Treatment Health Maintenance Due Date Last Done Comments Depression Screening 2003 SDOH Screening 2003 Disability Screening 2003 Alcohol/Substance Use Screening 2015 Family Planning (PISQ) 2018 Meningococcal B Vaccine (1 of 2 - Standard) 2019 Dental X-Ray: Bitewings 09/02/2021 09/02/19 21, 01/18/2019, 12/05/2016, Additional history exists Dental Oral Exam 10/05/2021 04/06/2021, , 01/18/2019, Additional history exists Dental Prophylaxis 10/05/2021 04/06/2021, 0 09/01/2020, 01/18/2019, Additional history exists Dental X-Ray: Full Mouth 01/19/2022 01/18/2019, 11/18 DTaP/Tdap/Td Vaccines (7 - Td or Tdap) 06/22/2023 06/21/2013, 02/16/2007, 05/03/2005, Additional history exists COVID-19 Vaccine ( season) 2024 06/02/2022, 12/29/2020, 12/07/2020 Influenza Vaccine (#1) 2024 , 11/28/2019, 11/26/2019, Additional history exists Chlamydia and Gonorrhea Screening 11/27/2024 11/28/2023 Tobacco Screening 11/27/2024 11/28/2023 Zoster Vaccines (1 of 2) 2053 RSV Patients and Patients Aged 60 years or older (1 - 1-dose 75+ series) 2078 Hepatitis B Vaccines Completed 2003, 2003, 2003 IPV Vaccines Completed 02/16/2007, 07/18, 2003, Additional history exists HPV Vaccines Completed 12/24/2015, 07/20, 06/16/2015 Hepatitis A Vaccines Completed 06/23/2016, 06/16/19 16 Meningococcal Vaccine Completed 12/12/2019, 014 HIV Screening Completed 11/28/2023 Hepatitis C Screening Completed 11/28/2023 HIB Vaccines Aged Out No longer eligi ble based on patient's age to complete this topic Pneumococcal Vaccine: Pediatrics (0 to 5 Years) and At-Risk Patients (6 to 49) Years Aged Out No longer eligible based on patient's age to complete this topic RSV under 20 months Aged Out No longe r eligible based on patient's age to complete this topic Rotavirus Vaccines Aged Out No longer eligible based on patient's age to complete this topic Procedures Procedure Name Priority Date/Time Associated Diagnosis Comments HEPATITIS C AB W/REFL TO HCV RNA, QN, PCR Routine 11/28/2023 4:19 PM EDT Perineal itching, male HIV 1/2 ANTIGEN/ANTIBODY, FOURTH GENERATION W/RFL Routine 11/28/2023 4:19 PM EDT Perineal itching, male CHLAMYDIA/N. GONORRHOEAE RNA, TMA, UROGENITAL Routine 11/28/2023 4:11 PM EDT Screening examination for STI PROPHYLAXIS - ADULT Routine 04/06/2021 1 2:00 AM EST PERIODIC ORAL EVALUATION - ESTABLISHED PATIENT Routine 04/06/2021 12:00 AM EST BITEWINGS - 4 RADIOGRAPHIC IMAGES Routine 09/01/2020 12:00 AM EDT PANORAMIC RADIOGRAPHIC IMAGE Routine 01/18/2019 12:00 AM EDT from Last 3 Months or Most Recently Relevant to Health Maintenance Results * Hepatitis C Antibody with Reflex to HCV, RNA, Quantitative, Real-Time PCR (11/28/2023 4:19 PM EDT) Hepatitis C Antibody Nonreactive Nonreactive [facility] Comment:Antibodies to HCV no t detected; does not exclude early acuteHCV infection. Blood Venous blood specimen / Unknown 11/28/2023 4:19 PM EDT 11/28/2023 5:48 PM EDT us Du Mendez MD LAB BLOOD ORDERABLES Final Resu lt [facility] [address] [place] [phone] * HIV-1/2 Antigen and Antibodies, Fourth Generation, with Reflexes (11/28/2023 4:19 PM EDT) HIV AB/AG Nonreactive Nonreactive [facility] Comment:HIV-1 p24 Ag and/or HIV-1/HIV-2 Ab not detected.A test result that is nonreactive does not exclude thepossibility of exposure to or infection with HIV-1 and/orHIV-2. Nonreactive results in this assay for individualswith prior exposure to HIV-1 and/or HIV-2 may be due toantigen and antibody levels that are below the limit ofdetection of this assay.The [employer] HIV Ag/Ab Combo assay result andsupplemental assay results should be interpreted inconjunction with the patient's clinical presentation,history and other laboratory results. If the results areinconsistent with clinical evidence, additional testing issuggested to confirm the result. Blood Venous blood specimen / Unknown 11/28/2023 4:19 PM EDT 11/28/2023 5:48 PM EDT us Du Mendez MD LAB BLOOD ORDERABLES Final Resu lt [facility] [address] [place] [phone] * Chlamydia/N. Gonorrhoeae RNA, TMA, Urogenitial (11/28/2023 4:11 PM EDT) CT PCR NOT DETECTED Not Detect. [facility] Comment:A not detected test result does not exclude the possibilityof infection because test results can be affected byimproper specimen collection, concurrent antibiotic therapy,or the number of organisms in the specimen which may bebelow the sensitivity of the test. As with many diagnostictests, results from the Xpert CT/NG assay should beinterpreted in conjunction with other laboratory andclinical data available to the clinician.Xpert CT/NG performance has not been evaluated in patientsless than 14 years of age. The assay should not be used forthe evaluationof suspected sexual abuse or for other medico-legalindications. Additional testing is recommended in anycircumstance when false positive or false negative resultscould lead to adverse medical, social or psychologicalconsequences. NG PCR NOT DETECTED Not Detect. [facility] Comment:A not detected test result does not exclude the possibilityof infection because test results can be affected byimproper specimen collection, concurrent antibiotic therapy,or the number of organisms in the specimen which may bebelow the sensitivity of the test. As with many diagnostictests, results from the Xpert CT/NG assay should beinterpreted in conjunction with other laboratory andclinical data available to the clinician.Xpert CT/NG performance has not been evaluated in patientsless than 14 years of age. The assay should not be used forthe evaluationof suspected sexual abuse or for other medico-legalindications. Additional testing is recommended in anycircumstance when false positive or false negative resultscould lead to adverse medical, social or psychologicalconsequences. Urine (Urine, Random) 11/28/2023 4:11 PM EDT 11/28/2023 5:35 PM EDT Narrative [facility] - 11/29/2023 7:13 AM EDT Urine us uD Mendez MD LAB MICROBIOLOGY - GENERAL CHRISTINA GALAN Final Result [facility] [address] [place] [phone] [phone] from Last 3 Months or Most Recently Relevant to Health Maintenance Insurance [facility] MEDICAID STAND ADULT Care Teams Junior Project Coordinator Relationship Specialty Start Date End Date Shelby Singh NP [address] [place] [phone] PCP - General Family Medicine 04/13/23
--- OUTSIDE RECORDS SUMMARY | 2024-12-26 22:21 | XMS_ITS | Encounter Summary ---
Author Organization [employer] Address [address] [place] [address] Care Team Providers Care Boiler Attendant Name Role Phone Shelby Singh TANK PUMPER PANELBOARD Primary Care Provider [phone] Reason for Visit * Reason Onset Date Comments Referral 09/07/2023 Encounter Details Date Type Department Care Team ([facility] st Contact Info) Description 09/07/2023 Telephone [facility] [address] [place] [address] Shelby Singh NP [address] [place] [address] Referral Social History Tobacco Use Types Packs/Day Years Used Date Smoking Tobacco: Never Assessed Sex and Gender Information Value Date Recorded Sex Assigned at Male 01/17/2022 10:29 AM EDT Legal Sex Male 10:29 AM EDT Gender Identity Male 01/17/2022 10:29 AM EDT Sexual Orientation Straight 01/17/2022 10 :29 AM EDT documented as of this encounter Miscellaneous Notes * Telephone Encounter - Shilo Valadez RN - 09/07/2023 1:29 PM EDT T/C to pt. For below message through [place]bloon id - [id number]. Mom states she is looking for referral for eye check up for his son, no pain or flashing sensation right now. Son is complaining for blurry vision. Please review and advise if needed. * Telephone Encounter - Edvin Rausch - 09/07/2023 1:00 PM EDT Tc from mom requesting referral for [facility] vision center. If any questions you can contact mom at [phone]. documented in this encounter Plan of Treatment Not on file documented as of this encounter Visit Diagnoses Not on filedocumented in this encounter Care Teams Boiler Attendant Relationship Specialty Start Date End Date Shelby Singh NP [address] [place] [phone] PCP - General Family Medicine 04/13/23 documented as of this encounter
[2024-12-27 03:47] LABS: CT PCR Urine NOT DETECTED (Not Detect.); NG PCR Urine NOT DETECTED (Not Detect.)
== END 2024-12-26 22:37 | disposition left against medical advice (07) ==
PROVIDERS: Registered Nurse Emergency; Emergency Provider Emergency Medicine
DX: Z20.2 Contact with and (suspected) exposure to infections with a predominantly sexual mode of transmission (principal)
CPT/HCPCS: 81003; 87491; 87591; 99282